=== PATIENT | female | born 1975 | race Caucasian/White ===

== ENCOUNTER 2016-07-04 15:51 | Emergency (ER) | payer MEDICAID ==
[~2016-07-04] VITALS: Ht 134.6 cm; Wt 64.0 kg
[~2016-07-04 15:51] MED LIST: IOHEXOL-300 100 ML BOTTLE ONE; SODIUM CHLORIDE 0.9% 10ML VIAL ONE
[2016-07-04] MEDS ORDERED: ONDANSETRON 4MG ODT PO STA (17:21)
[2016-07-04] MEDS ORDERED: MAGNESIUM/ALUMINUM HYDROXIDE/SIMETHICONE 30ML UDC PO STA (17:21)
[2016-07-04] MEDS ORDERED: FAMOTIDINE 20MG TABLET PO ONE (17:30)
[2016-07-04 17:40] LABS: BASOPHILS % 0.5 % (0.0-2.0); EOSINOPHILS % 3.8 % (0.0-5.0); HEMATOCRIT. 32.3 % (36.0-48.0); HEMOGLOBIN. 10.8 g/dL (12.0-16.0); LYMPHOCYTES % 36.9 % (20.0-50.0); MEAN CORPUSCULAR HEMOGLOBIN 27.4 pg (28.0-32.0); MEAN CORPUSCULAR HGB CONC 33.4 g/dL (31.0-37.0); MEAN CORPUSCULAR VOLUME 81.9 fL (81.0-99.0); MEAN PLATELET VOLUME 8.9 fl (7.4-10.4); MONOCYTES % 6.4 % (2.0-8.0); NEUTROPHILS % 52.4 % (40.0-76.0); PLATELET 253 x1000/uL (130-400); RED BLOOD CELL COUNT 3.95 mill/uL (4.2-5.4); RED CELL DISTRIBUTION WIDTH 14.9 % (11.6-14.6); WHITE BLOOD COUNT 7.1 x1000/uL (4.5-11.0)
[2016-07-04 17:41] LABS: CLARITY URINE CLEAR (CLEAR); COLOR URINE YELLOW (YELLOW); GLUCOSE URINE NEGATIVE (NEGATIVE); KETONES URINE TRACE (NEGATIVE); LEUKOCYTE ESTERASE URINE NEGATIVE (NEGATIVE); NITRITE URINE NEGATIVE (NEGATIVE); OCCULT BLOOD URINE NEGATIVE (NEGATIVE); PROTEIN URINE NEGATIVE (NEGATIVE); SPECIFIC GRAVITY URINE 1.029 (1.005-1.030)
[2016-07-04 17:48] LABS: PARTIAL THROMBOPLASTIN TIME 25.6 sec (24.0-34.0); PROTHROMBIN TIME 10.7 sec
[2016-07-04 17:54] LABS: ALANINE AMINOTRANSFERASE 27 IU/L (13-61); ALBUMIN 3.3 g/dL (3.4-5.0); ANION GAP 12; CALCIUM 8.2 mg/dL (8.5-10.1); CARBON DIOXIDE 26 mEq/L (21-32); CHLORIDE 109 mEq/L (98-107); ETHANOL BLOOD < 10 mg/dL; INDEX HEMOLYSI 1 (1-3); INDEX ICTERIC 1 (1-4); INDEX LIPEMIC 1 (1-3); LIPASE 219 IU/L (73-393); UREA NITROGEN BLOOD 17 mg/dL (7-21); eGFR > 60 mL/min (>60)
[2016-07-04 17:55] LABS: HCG SCREEN NEGATIVE
[2016-07-04 17:58] LABS: *AMPHETAMINES SCREEN URINE NEGATIVE (NEGATIVE); *BARBITURATES SCREEN URINE NEGATIVE (NEGATIVE); *BENZODIAZEPINES SCREEN URINE NEGATIVE (NEGATIVE); *COCAINE SCREEN URINE NEGATIVE (NEGATIVE); CANNABINOID URINE SCREEN NEGATIVE (NEGATIVE); ECSTASY MDMA SCREEN URINE NEGATIVE (NEGATIVE); METHADONE URINE SCREEN NEGATIVE (NEGATIVE); OPIATES URINE SCREEN NEGATIVE (NEGATIVE); PHENCYCLIDINE URINE SCREEN NEGATIVE (NEGATIVE)
[2016-07-04 20:41] VITALS: BP 112/62
== END 2016-07-04 20:44 | disposition home or self-care (01) ==
LOC: ER 15:51
DX: K29.70 Gastritis, unspecified, without bleeding (principal); K80.20 Calculus of gallbladder without cholecystitis without obstruction; D18.03 Hemangioma of intra-abdominal structures; K27.9 Peptic ulcer, site unspecified, unspecified as acute or chronic, without hemorrhage or perforation; Z98.890 Other specified postprocedural states
CPT/HCPCS: 36415; 74177; 76705; 80053; 80305; 81003; 83690; 84703; 85025; 85610; 85730; 93005; 99285; A4216; G0482; Q0162; Q9967; Z7610

== ENCOUNTER 2019-10-19 00:24 | Emergency (ER) | payer BC, MEDICAID, OTHER ==
[~2019-10-19] VITALS: Ht 134.6 cm; Wt 63.0 kg
[2019-10-19 03:04] VITALS: BP 142/82
== END 2019-10-19 03:07 | disposition home or self-care (01) ==
LOC: ER 01:16
DX: H11.31 Conjunctival hemorrhage, right eye (principal); H92.01 Otalgia, right ear; Z86.19 Personal history of other infectious and parasitic diseases; Z98.890 Other specified postprocedural states
CPT/HCPCS: 99282

== ENCOUNTER 2019-11-05 18:09 | Emergency (ER) | payer BC ==
[~2019-11-05] VITALS: Ht 134.6 cm; Wt 63.0 kg
[2019-11-05 21:37] LABS: BASOPHILS % 0.4 % (0.0-2.0); EOSINOPHILS % 2.7 % (0.0-5.0); HEMATOCRIT. 42.2 % (36.0-48.0); HEMOGLOBIN. 14.7 g/dL (12.0-16.0); LYMPHOCYTES % 31.2 % (20.0-50.0); MEAN CORPUSCULAR HEMOGLOBIN 31.7 pg (28.0-32.0); MEAN CORPUSCULAR VOLUME 91.1 fL (81.0-99.0); MONOCYTES % 5.7 % (2.0-8.0); PLATELET 291 x1000/uL (130-400); RED BLOOD CELL COUNT 4.63 mill/uL (4.2-5.4); RED CELL DISTRIBUTION WIDTH 13.3 % (11.6-14.6)
[2019-11-05 21:41] LABS: CHLORIDE 106 mEq/L (98-107)
[2019-11-05] MEDS ORDERED: SODIUM CHLORIDE 0.9% 500 ML IV ONE (22:00)
[2019-11-05] MEDS ORDERED: MECLIZINE 25MG TABLET PO ONE (22:15)
[2019-11-05] MEDS ORDERED: METOCLOPRAMIDE HCL 10MG/2ML VIAL IV ONE (22:15)
[2019-11-05] MEDS ORDERED: DIPHENHYDRAMINE 50MG/ML VIAL IV ONE (22:15)
[2019-11-05 22:18] LABS: CLARITY URINE CLOUDY (CLEAR); COLOR URINE YELLOW (YELLOW); KETONES URINE NEGATIVE (NEGATIVE); LEUKOCYTE ESTERASE URINE TRACE (NEGATIVE); NITRITE URINE NEGATIVE (NEGATIVE); OCCULT BLOOD URINE NEGATIVE (NEGATIVE); PH URINE 7.5 (4.5-8.0); PROTEIN URINE NEGATIVE (NEGATIVE); UROBILINOGEN URINE 0.2 E.U./dL (0.2-1.0)
[2019-11-05 22:32] LABS: HCG SCREEN NEGATIVE
[2019-11-06 00:25] VITALS: BP 113/61
== END 2019-11-06 00:31 | disposition home or self-care (01) ==
LOC: ER 18:09
DX: R51 Headache (principal); R42 Dizziness and giddiness; Z98.890 Other specified postprocedural states
CPT/HCPCS: 36415; 70450; 71045; 80053; 81003; 82962; 84484; 84703; 85025; 93005; 96361; 96374; 96375; 99285; J1200; J2765; J7040; J8597

== ENCOUNTER 2020-02-07 19:48 | Emergency (ER) | payer BC, MEDICAID ==
[~2020-02-07] VITALS: Ht 134.6 cm; Wt 66.0 kg
[2020-02-07] MEDS ORDERED: ACETAMINOPHEN 500MG TABLET PO ONE (20:45)
[2020-02-07 22:52] LABS: CLARITY URINE CLEAR (CLEAR); COLOR URINE YELLOW (YELLOW); KETONES URINE NEGATIVE (NEGATIVE); LEUKOCYTE ESTERASE URINE NEGATIVE (NEGATIVE); NITRITE URINE NEGATIVE (NEGATIVE); OCCULT BLOOD URINE NEGATIVE (NEGATIVE); PROTEIN URINE NEGATIVE (NEGATIVE); SPECIFIC GRAVITY URINE 1.019 (1.005-1.030); UROBILINOGEN URINE 0.2 E.U./dL (0.2-1.0)
[2020-02-07 23:26] VITALS: BP 151/91
== END 2020-02-07 23:27 | disposition home or self-care (01) ==
LOC: ER 19:48
DX: M54.5 Low back pain (principal); Z98.890 Other specified postprocedural states
CPT/HCPCS: 81003; 99283

== ENCOUNTER → 2020-02-08 | Outpatient (CLI) | payer BC, MEDICAID | END | disposition home or self-care (01) | LOC: LAB 08:25 | PROVIDERS: ATTEND Nurse Practitioner Acute Care | DX: Z01.812 Encounter for preprocedural laboratory examination (principal); Z20.828 Contact with and (suspected) exposure to other viral communicable diseases; R10.9 Unspecified abdominal pain | CPT/HCPCS: C9803; U0003 ==

== ENCOUNTER → 2020-02-10 | Outpatient (CLI) | payer BC | END | disposition home or self-care (01) | LOC: US 08:25 | PROVIDERS: ATTEND Internal Medicine | DX: K76.0 Fatty (change of) liver, not elsewhere classified (principal); K76.89 Other specified diseases of liver | CPT/HCPCS: 76700 ==

== ENCOUNTER → 2020-02-19 | Outpatient (CLI) | payer BC ==
[2020-02-19 09:19] LABS: BASOPHILS % 0.5 % (0.0-2.0); EOSINOPHILS % 4.2 % (0.0-5.0); HEMATOCRIT. 40.7 % (36.0-48.0); HEMOGLOBIN. 14.4 g/dL (12.0-16.0); LYMPHOCYTES % 25.9 % (20.0-50.0); MEAN CORPUSCULAR HEMOGLOBIN 31.8 pg (28.0-32.0); MEAN CORPUSCULAR VOLUME 89.6 fL (81.0-99.0); MEAN PLATELET VOLUME 8.8 fl (7.4-10.4); MONOCYTES % 5.3 % (2.0-8.0); NEUTROPHILS % 64.1 % (40.0-76.0); PLATELET 263 x1000/uL (130-400); RED BLOOD CELL COUNT 4.55 mill/uL (4.2-5.4); RED CELL DISTRIBUTION WIDTH 12.4 % (11.6-14.6)
[2020-02-19 10:12] LABS: CHLORIDE 108 mEq/L (98-107)
[2020-02-19 10:23] LABS: LDL CHOLESTEROL 125 mg/dL (5-100)
[2020-02-19 10:25] LABS: HDL CHOLESTEROL 76 mg/dL (40-59)
[2020-02-19 13:24] LABS: HEPATITIS B SURFACE ANTIGEN NEGATIVE
[2020-02-19 13:54] LABS: HEPATITIS A AB IGM NEGATIVE (NEGATIVE)
== END | disposition home or self-care (01) ==
LOC: LAB 08:26
PROVIDERS: ATTEND Internal Medicine
DX: Z00.00 Encounter for general adult medical examination without abnormal findings (principal); I10 Essential (primary) hypertension; K76.0 Fatty (change of) liver, not elsewhere classified; Z13.0 Encounter for screening for diseases of the blood and blood-forming organs and certain disorders involving the immune mechanism; Z13.1 Encounter for screening for diabetes mellitus; Z13.220 Encounter for screening for lipoid disorders
CPT/HCPCS: 36415; 80053; 80061; 80076; 83036; 84439; 84443; 85025; 86705; 86709; 86803; 87340

== ENCOUNTER → 2020-02-24 | Outpatient (CLI) | payer BC | END | disposition home or self-care (01) | LOC: LAB 10:26 | PROVIDERS: ATTEND Internal Medicine | DX: Z20.828 Contact with and (suspected) exposure to other viral communicable diseases (principal); Z86.19 Personal history of other infectious and parasitic diseases | CPT/HCPCS: C9803; U0003 ==

== ENCOUNTER → 2020-02-26 | Outpatient (CLI) | payer BC | END | disposition home or self-care (01) | LOC: US 10:45 | PROVIDERS: ATTEND Internal Medicine | DX: D25.1 Intramural leiomyoma of uterus (principal); N88.8 Other specified noninflammatory disorders of cervix uteri | CPT/HCPCS: 76830; 76856 ==

== ENCOUNTER → 2020-07-22 | Outpatient (CLI) | payer BC ==
[2020-07-22 10:35] LABS: CLARITY URINE CLEAR (CLEAR); COLOR URINE YELLOW (YELLOW); KETONES URINE NEGATIVE (NEGATIVE); LEUKOCYTE ESTERASE URINE NEGATIVE (NEGATIVE); NITRITE URINE NEGATIVE (NEGATIVE); OCCULT BLOOD URINE NEGATIVE (NEGATIVE); PROTEIN URINE NEGATIVE (NEGATIVE); UROBILINOGEN URINE 0.2 E.U./dL (0.2-1.0)
[2020-07-22 10:38] LABS: BASOPHILS % 0.4 % (0.0-2.0); EOSINOPHILS % 3.9 % (0.0-5.0); HEMATOCRIT. 40.6 % (36.0-48.0); HEMOGLOBIN. 13.8 g/dL (12.0-16.0); LYMPHOCYTES % 33.5 % (20.0-50.0); MEAN CORPUSCULAR HEMOGLOBIN 29.8 pg (28.0-32.0); MEAN CORPUSCULAR VOLUME 87.7 fL (81.0-99.0); MEAN PLATELET VOLUME 8.7 fl (7.4-10.4); MONOCYTES % 5.4 % (2.0-8.0); NEUTROPHILS % 56.8 % (40.0-76.0); PLATELET 316 x1000/uL (130-400); RED BLOOD CELL COUNT 4.62 mill/uL (4.2-5.4); RED CELL DISTRIBUTION WIDTH 13.1 % (11.6-14.6)
[2020-07-22 10:46] LABS: CHLORIDE 109 mEq/L (98-107)
[2020-07-22 10:53] LABS: LDL CHOLESTEROL 100 mg/dL (5-100)
[2020-07-22 10:54] LABS: HDL CHOLESTEROL 69 mg/dL (40-59)
== END | disposition home or self-care (01) ==
LOC: LAB 09:42
PROVIDERS: ATTEND Obstetrics & Gynecology Obstetrics
DX: Z13.220 Encounter for screening for lipoid disorders (principal); Z13.0 Encounter for screening for diseases of the blood and blood-forming organs and certain disorders involving the immune mechanism; Z13.1 Encounter for screening for diabetes mellitus
CPT/HCPCS: 36415; 80053; 80061; 81003; 82951; 83036; 84443; 85025

== ENCOUNTER 2020-08-21 23:29 | Emergency (ER) | payer BC ==
[~2020-08-21] VITALS: Ht 134.6 cm; Wt 64.0 kg
[2020-08-22 00:57] VITALS: BP 145/75
[2020-08-22] MEDS ORDERED: ACETAMINOPHEN 325MG TABLET PO ONE (02:00)
[2020-08-22] MEDS ORDERED: IBUPROFEN 400MG TABLET PO ONE (02:00)
[2020-08-23] MEDS ORDERED: AMLO10TA80 PO
== END 2020-08-22 04:20 | disposition home or self-care (01) ==
LOC: ER 23:29
DX: M79.672 Pain in left foot (principal); M79.671 Pain in right foot; I10 Essential (primary) hypertension; Z90.710 Acquired absence of both cervix and uterus
CPT/HCPCS: 82962; 99283

== ENCOUNTER 2020-08-22 12:50 | Inpatient (IN) | payer BC ==
[~2020-08-22] VITALS: Ht 134.6 cm; Wt 48.6 kg
[2020-08-22] MEDS ORDERED: METOCLOPRAMIDE HCL 10MG/2ML VIAL IV STA ×2 (15:47→22:25)
[2020-08-22 16:52] LABS: BASOPHILS % 0.2 % (0.0-2.0); EOSINOPHILS % 2.1 % (0.0-5.0); HEMATOCRIT. 41.2 % (36.0-48.0); HEMOGLOBIN. 14.4 g/dL (12.0-16.0); LYMPHOCYTES % 24.5 % (20.0-50.0); MEAN CORPUSCULAR HEMOGLOBIN 30.9 pg (28.0-32.0); MEAN CORPUSCULAR VOLUME 88.1 fL (81.0-99.0); MEAN PLATELET VOLUME 9.1 fl (7.4-10.4); MONOCYTES % 4.3 % (2.0-8.0); NEUTROPHILS % 68.9 % (40.0-76.0); PLATELET 306 x1000/uL (130-400); RED BLOOD CELL COUNT 4.67 mill/uL (4.2-5.4); RED CELL DISTRIBUTION WIDTH 13.3 % (11.6-14.6)
[2020-08-22 16:59] LABS: CHLORIDE 112 mEq/L (98-107)
[2020-08-22 17:01] LABS: PROTHROMBIN TIME 10.5 sec (9.6-11.0)
[2020-08-22] MEDS ORDERED: ASPIRIN 325MG EC TABLET PO ONE ×2 (18:15→22:30)
[2020-08-22 18:19] LABS: HCG SCREEN NEGATIVE
[2020-08-22 18:30] LABS: CLARITY URINE CLEAR (CLEAR); COLOR URINE YELLOW (YELLOW); KETONES URINE TRACE (NEGATIVE); LEUKOCYTE ESTERASE URINE NEGATIVE (NEGATIVE); NITRITE URINE NEGATIVE (NEGATIVE); OCCULT BLOOD URINE NEGATIVE (NEGATIVE); PH URINE 5.5 (4.5-8.0); PROTEIN URINE NEGATIVE (NEGATIVE); SPECIFIC GRAVITY URINE 1.022 (1.005-1.030); UROBILINOGEN URINE 0.2 E.U./dL (0.2-1.0)
[2020-08-22 18:37] LABS: *AMPHETAMINES SCREEN URINE NEGATIVE (NEGATIVE)
[2020-08-22 18:38] LABS: *BARBITURATES SCREEN URINE NEGATIVE (NEGATIVE); *BENZODIAZEPINES SCREEN URINE NEGATIVE (NEGATIVE); *COCAINE SCREEN URINE NEGATIVE (NEGATIVE); METHADONE URINE SCREEN NEGATIVE (NEGATIVE); PHENCYCLIDINE URINE SCREEN NEGATIVE (NEGATIVE)
[2020-08-22 18:39] LABS: CANNABINOID URINE SCREEN NEGATIVE (NEGATIVE)
[2020-08-22 18:45] LABS: OPIATES URINE SCREEN PRESUMTIVE POSITIVE (NEGATIVE)
[2020-08-23] MEDS ORDERED: AMLO10TA80 PO
[2020-08-23 00:40] VITALS: BP 109/62
[2020-08-23 04:00] VITALS: BP 110/70
[2020-08-23 07:27] LABS: BASOPHILS % 0.2 % (0.0-2.0); EOSINOPHILS % 2.4 % (0.0-5.0); HEMOGLOBIN. 13.4 g/dL (12.0-16.0); LYMPHOCYTES % 29.8 % (20.0-50.0); MEAN CORPUSCULAR HEMOGLOBIN 30.3 pg (28.0-32.0); MEAN CORPUSCULAR VOLUME 88.2 fL (81.0-99.0); MONOCYTES % 7.1 % (2.0-8.0); NEUTROPHILS % 60.5 % (40.0-76.0); PLATELET 273 x1000/uL (130-400); RED BLOOD CELL COUNT 4.42 mill/uL (4.2-5.4); RED CELL DISTRIBUTION WIDTH 13.2 % (11.6-14.6)
[2020-08-23 07:50] LABS: CHLORIDE 112 mEq/L (98-107)
[2020-08-23 08:00] VITALS: BP 94/43
[2020-08-23 08:02] LABS: LDL CHOLESTEROL 97 mg/dL (5-100)
[2020-08-23 08:03] LABS: HDL CHOLESTEROL 68 mg/dL (40-59)
[2020-08-23] MEDS: AMLODIPINE 10MG TABLET PO SCH (09:00)
[2020-08-23] MEDS: ASPIRIN 81MG TABLET PO SCH (09:18)
[2020-08-23] MEDS: ENOXAPARIN 30MG/0.3ML SYR SUBCUT SCH (09:19)
[2020-08-23 12:00] VITALS: BP 102/56
[2020-08-23 16:00] VITALS: BP 105/62
[2020-08-23 20:00] VITALS: BP 91/51
[2020-08-23] MEDS ORDERED: ATORVASTATIN CALCIUM 40MG TABLET PO SCH (21:00)
[2020-08-24] VITALS: BP 103/55
[2020-08-24 04:00] VITALS: BP 98/50
[2020-08-24 08:00] VITALS: BP 94/50
[2020-08-24] MEDS: AMLODIPINE 10MG TABLET PO SCH (09:00)
[2020-08-24] MEDS: ASPIRIN 81MG TABLET PO SCH (09:16)
[2020-08-24] MEDS: ENOXAPARIN 30MG/0.3ML SYR SUBCUT SCH (09:17)
[2020-08-24 12:00] VITALS: BP 115/69
[2020-08-24 13:50] VITALS: BP 115/69
== END 2020-08-24 14:52 | disposition home or self-care (01) | DRG 103 ==
LOC: ER 12:50 → 6WST 20:07 → EDBEDREQTM 20:16 → EDBEDREQ 20:16 → ENRESERV 21:50
PROVIDERS: ADMIT Internal Medicine; ATTEND Internal Medicine
DX: R51.9 Headache, unspecified (principal); E87.8 Other disorders of electrolyte and fluid balance, not elsewhere classified; I10 Essential (primary) hypertension; Z98.891 History of uterine scar from previous surgery; Z90.710 Acquired absence of both cervix and uterus
CPT/HCPCS: 36415; 71045; 72141; 72146; 72148; 80053; 80061; 80305; 81003; 84484; 84703; 85025; 93005; 97162; 99285; J1650; J2765

== ENCOUNTER → 2020-08-30 | Outpatient (CLI) | payer BC, MEDICAID ==
[~2020-08-30] MED LIST changes: +AMLO10TA80 PO; -IOHEXOL-300 100 ML BOTTLE ONE; -SODIUM CHLORIDE 0.9% 10ML VIAL ONE
[2020-08-30 08:06] LABS: CHLORIDE 109 mEq/L (98-107)
[2020-08-30 08:07] LABS: BASOPHILS % 0.5 % (0.0-2.0); EOSINOPHILS % 3.1 % (0.0-5.0); HEMATOCRIT. 39.4 % (36.0-48.0); HEMOGLOBIN. 13.4 g/dL (12.0-16.0); LYMPHOCYTES % 31.4 % (20.0-50.0); MEAN CORPUSCULAR HEMOGLOBIN 30.6 pg (28.0-32.0); MEAN CORPUSCULAR VOLUME 89.8 fL (81.0-99.0); MEAN PLATELET VOLUME 9.5 fl (7.4-10.4); MONOCYTES % 5.9 % (2.0-8.0); NEUTROPHILS % 59.1 % (40.0-76.0); PLATELET 266 x1000/uL (130-400); RED BLOOD CELL COUNT 4.39 mill/uL (4.2-5.4); RED CELL DISTRIBUTION WIDTH 13.3 % (11.6-14.6)
[2020-08-30 08:09] LABS: AMYLASE 67 IU/L (25-115)
[2020-08-30 08:15] LABS: T4 FREE 1.04 ng/dL (0.76-1.46)
== END | disposition home or self-care (01) ==
LOC: LAB 07:20
PROVIDERS: ATTEND Pathology Anatomic Pathology & Clinical Pathology
DX: Z00.00 Encounter for general adult medical examination without abnormal findings (principal); I10 Essential (primary) hypertension; Z12.0 Encounter for screening for malignant neoplasm of stomach; Z13.1 Encounter for screening for diabetes mellitus
CPT/HCPCS: 36415; 80053; 82150; 83036; 84439; 84443; 85025

== ENCOUNTER → 2020-09-01 | Outpatient (CLI) | payer BC, MEDICAID | END | disposition home or self-care (01) | LOC: US 07:40 | PROVIDERS: ATTEND Internal Medicine | DX: K76.0 Fatty (change of) liver, not elsewhere classified (principal); Z90.49 Acquired absence of other specified parts of digestive tract | CPT/HCPCS: 76700 ==

== ENCOUNTER → 2020-09-16 | Outpatient (CLI) | payer BC ==
[2020-09-16 14:33] LABS: HEPATITIS B SURFACE ANTIGEN NEGATIVE
[2020-09-16 14:38] LABS: VITAMIN B12 SERUM 1107 pg/mL (211-911)
[2020-09-16 14:38] LABS: CLARITY URINE CLEAR (CLEAR); COLOR URINE YELLOW (YELLOW); KETONES URINE NEGATIVE (NEGATIVE); LEUKOCYTE ESTERASE URINE NEGATIVE (NEGATIVE); NITRITE URINE NEGATIVE (NEGATIVE); OCCULT BLOOD URINE NEGATIVE (NEGATIVE); PH URINE 7.5 (4.5-8.0); PROTEIN URINE NEGATIVE (NEGATIVE)
[2020-09-16 15:03] LABS: HEPATITIS A AB IGM NEGATIVE (NEGATIVE)
[2020-09-22 04:08] LABS: OVA & PARASITE EXAM Final report (.)
== END | disposition home or self-care (01) ==
LOC: LAB 09:56
PROVIDERS: ATTEND Internal Medicine Geriatric Medicine
DX: Z00.01 Encounter for general adult medical examination with abnormal findings (principal); I10 Essential (primary) hypertension; R10.9 Unspecified abdominal pain; N39.0 Urinary tract infection, site not specified
CPT/HCPCS: 36415; 81003; 82306; 82607; 86705; 86709; 86803; 87177; 87209; 87340

== ENCOUNTER → 2020-10-04 | Outpatient (CLI) | payer BC ==
[2020-10-04 10:50] LABS: CHLORIDE 108 mEq/L (98-107)
== END | disposition home or self-care (01) ==
LOC: LAB 10:00
PROVIDERS: ATTEND Internal Medicine Gastroenterology
DX: R10.13 Epigastric pain (principal)
CPT/HCPCS: 36415; 80053

== ENCOUNTER → 2020-10-06 | Outpatient (CLI) | payer BC ==
[~2020-10-06] MED LIST changes: +IOHEXOL-350 100 ML BOTTLE ONE
== END | disposition home or self-care (01) ==
LOC: MAMMO 08:55
PROVIDERS: ATTEND Obstetrics & Gynecology Obstetrics
DX: N60.01 Solitary cyst of right breast (principal); N60.02 Solitary cyst of left breast; N63.20 Unspecified lump in the left breast, unspecified quadrant; N64.4 Mastodynia
CPT/HCPCS: 76642; 77066; Q9967

== ENCOUNTER → 2020-11-24 | Outpatient (CLI) | payer BC ==
[~2020-11-24] MED LIST changes: -IOHEXOL-350 100 ML BOTTLE ONE
== END | disposition home or self-care (01) ==
LOC: US 07:43
PROVIDERS: ATTEND Internal Medicine Geriatric Medicine
DX: N83.201 Unspecified ovarian cyst, right side (principal); Z90.5 Acquired absence of kidney; Z98.890 Other specified postprocedural states
CPT/HCPCS: 76830; 76856

== ENCOUNTER → 2021-02-06 | Outpatient (CLI) | payer BC ==
[2021-02-06 12:48] LABS: BASOPHILS % 0.3 % (0.0-2.0); EOSINOPHILS % 3.7 % (0.0-5.0); HEMATOCRIT. 39.5 % (36.0-48.0); HEMOGLOBIN. 13.7 g/dL (12.0-16.0); LYMPHOCYTES % 33.9 % (20.0-50.0); MEAN CORPUSCULAR HEMOGLOBIN 30.4 pg (28.0-32.0); MEAN CORPUSCULAR VOLUME 88.1 fL (81.0-99.0); MEAN PLATELET VOLUME 8.7 fl (7.4-10.4); MONOCYTES % 4.9 % (2.0-8.0); NEUTROPHILS % 57.2 % (40.0-76.0); PLATELET 317 x1000/uL (130-400); RED BLOOD CELL COUNT 4.49 mill/uL (4.2-5.4); RED CELL DISTRIBUTION WIDTH 13.3 % (11.6-14.6)
[2021-02-06 13:43] LABS: CHLORIDE 109 mEq/L (98-107)
[2021-02-06 13:50] LABS: LDL CHOLESTEROL 112 mg/dL (5-100)
[2021-02-06 13:51] LABS: HDL CHOLESTEROL 64 mg/dL (40-59)
== END | disposition home or self-care (01) ==
LOC: LAB 12:18
PROVIDERS: ATTEND Internal Medicine Geriatric Medicine
DX: I10 Essential (primary) hypertension (principal); K76.0 Fatty (change of) liver, not elsewhere classified
CPT/HCPCS: 36415; 80053; 80061; 82306; 83036; 85025

== ENCOUNTER → 2021-04-20 | Outpatient (CLI) | payer BC | END | disposition home or self-care (01) | LOC: MAMMO 08:44 | PROVIDERS: ATTEND Obstetrics & Gynecology Obstetrics | DX: N60.01 Solitary cyst of right breast (principal); N60.02 Solitary cyst of left breast; N63.23 Unspecified lump in the left breast, lower outer quadrant; N64.4 Mastodynia; R92.2 Inconclusive mammogram | CPT/HCPCS: 76642; 77066 ==

== ENCOUNTER → 2021-05-17 | Outpatient (CLI) | payer BC ==
[2021-05-19 09:10] LABS: CANCER ANTIGEN 125 5.7 U/mL (0.0-38.1)
== END | disposition home or self-care (01) ==
LOC: LAB 13:53
PROVIDERS: ATTEND Obstetrics & Gynecology Obstetrics
DX: Z12.73 Encounter for screening for malignant neoplasm of ovary (principal)
CPT/HCPCS: 36415; 82378; 86301; 86304; 86305

== ENCOUNTER 2021-07-26 00:13 | Emergency (ER) | payer BC, MEDICAID ==
[~2021-07-26] VITALS: Ht 134.6 cm; Wt 65.1 kg
[2021-07-26 00:19] VITALS: BP 184/93
[2021-07-26] MEDS ORDERED: ACETAMINOPHEN 325MG TABLET PO STA (00:43)
[2021-07-26 01:16] LABS: BASOPHILS % 0.4 % (0.0-2.0); HEMATOCRIT. 38.9 % (36.0-48.0); HEMOGLOBIN. 13.4 g/dL (12.0-16.0); LYMPHOCYTES % 34.6 % (20.0-50.0); MEAN CORPUSCULAR HEMOGLOBIN 30.4 pg (28.0-32.0); MEAN CORPUSCULAR VOLUME 87.8 fL (81.0-99.0); MEAN PLATELET VOLUME 8.4 fl (7.4-10.4); MONOCYTES % 7.6 % (2.0-8.0); NEUTROPHILS % 53.4 % (40.0-76.0); PLATELET 292 x1000/uL (130-400); RED BLOOD CELL COUNT 4.43 mill/uL (4.2-5.4); RED CELL DISTRIBUTION WIDTH 13.1 % (11.6-14.6)
[2021-07-26 01:23] LABS: CHLORIDE 109 mEq/L (98-107)
[2021-07-26] MEDS ORDERED: ACETAMINOPHEN 325MG TABLET PO NR (03:00)
[2021-07-26 03:25] LABS: CLARITY URINE CLEAR (CLEAR); COLOR URINE YELLOW (YELLOW); KETONES URINE NEGATIVE (NEGATIVE); LEUKOCYTE ESTERASE URINE NEGATIVE (NEGATIVE); NITRITE URINE NEGATIVE (NEGATIVE); OCCULT BLOOD URINE NEGATIVE (NEGATIVE); PROTEIN URINE NEGATIVE (NEGATIVE); SPECIFIC GRAVITY URINE 1.016 (1.005-1.030)
[2021-07-26] MEDS ORDERED: ACET-2708 PO (04:36)
[2021-07-29] MEDS ORDERED: LEVO50TA8 MT (12:48)
== END 2021-07-26 04:56 | disposition home or self-care (01) ==
LOC: ER 00:29
DX: H05.229 Edema of unspecified orbit (principal); M25.562 Pain in left knee; M25.561 Pain in right knee
CPT/HCPCS: 36415; 80053; 81003; 84443; 85025; 99283

== ENCOUNTER → 2021-07-28 | Outpatient (CLI) | payer BC, MEDICAID ==
[~2021-07-28] MED LIST changes: +ACET-2708 PO; +LEVO50TA8 MT
[2021-07-28 11:15] LABS: T4 FREE 0.92 ng/dL (0.76-1.46)
== END | disposition home or self-care (01) ==
LOC: LAB 10:27
PROVIDERS: ATTEND Internal Medicine Geriatric Medicine
DX: R94.6 Abnormal results of thyroid function studies (principal); R73.09 Other abnormal glucose
CPT/HCPCS: 36415; 83036; 84436; 84439; 84443; 84481

== ENCOUNTER → 2021-08-22 | Outpatient (CLI) | payer BC ==
[2021-08-22 10:38] LABS: CHLORIDE 109 mEq/L (98-107)
[2021-08-24 08:11] LABS: ANTI-NUCLEAR ANTIBODIES DIRECT Negative (Negative)
== END | disposition home or self-care (01) ==
LOC: LAB 09:57
PROVIDERS: ATTEND Internal Medicine Geriatric Medicine
DX: I10 Essential (primary) hypertension (principal); M79.18 Myalgia, other site; K75.81 Nonalcoholic steatohepatitis (NASH); M48.061 Spinal stenosis, lumbar region without neurogenic claudication
CPT/HCPCS: 36415; 80053; 84436; 84439; 84443; 84479; 85651; 86038

== ENCOUNTER → 2021-09-01 | Outpatient (CLI) | payer BC, MEDICAID | END | disposition home or self-care (01) | LOC: RAD 14:50 | PROVIDERS: ATTEND Internal Medicine Geriatric Medicine | DX: M79.671 Pain in right foot (principal); M79.672 Pain in left foot | CPT/HCPCS: 73630 ==

== ENCOUNTER → 2021-12-19 | Outpatient (CLI) | payer BC, MEDICAID ==
[2021-12-19 11:39] LABS: CHLORIDE 109 mEq/L (98-107)
[2021-12-19 11:53] LABS: HDL CHOLESTEROL 68 mg/dL (40-59); LDL CHOLESTEROL 120 mg/dL (5-100); T4 FREE 0.97 ng/dL (0.76-1.46)
== END | disposition home or self-care (01) ==
LOC: LAB 10:46
PROVIDERS: ATTEND Internal Medicine Geriatric Medicine
DX: I10 Essential (primary) hypertension (principal); K75.81 Nonalcoholic steatohepatitis (NASH)
CPT/HCPCS: 36415; 80053; 80061; 83036; 84439; 84443

== ENCOUNTER → 2022-02-19 | Outpatient (CLI) | payer BC, MEDICAID | END | disposition home or self-care (01) | LOC: LAB 16:34 | PROVIDERS: ATTEND Internal Medicine Geriatric Medicine | DX: Z20.822 Contact with and (suspected) exposure to COVID-19 (principal) | CPT/HCPCS: C9803; U0003; U0005 ==

== ENCOUNTER → 2022-05-07 | Outpatient (CLI) | payer BC, MEDICAID ==
[2022-05-07 12:29] LABS: BASOPHILS % 0.4 % (0.0-2.0); EOSINOPHILS % 4.4 % (0.0-5.0); HEMATOCRIT. 40.8 % (36.0-48.0); HEMOGLOBIN. 14.2 g/dL (12.0-16.0); LYMPHOCYTES % 39.3 % (20.0-50.0); MEAN CORPUSCULAR HEMOGLOBIN 30.5 pg (28.0-32.0); MEAN CORPUSCULAR VOLUME 87.6 fL (81.0-99.0); MEAN PLATELET VOLUME 9.1 fl (7.4-10.4); MONOCYTES % 5.6 % (2.0-8.0); NEUTROPHILS % 50.3 % (40.0-76.0); PLATELET 281 x1000/uL (130-400); RED BLOOD CELL COUNT 4.66 mill/uL (4.2-5.4); RED CELL DISTRIBUTION WIDTH 13.3 % (11.6-14.6)
[2022-05-07 12:30] LABS: CHLORIDE 108 mEq/L (98-107)
[2022-05-07 12:44] LABS: HDL CHOLESTEROL 70 mg/dL (40-59); LDL CHOLESTEROL 97 mg/dL (5-100); T4 FREE 1.02 ng/dL (0.76-1.46)
== END | disposition home or self-care (01) ==
LOC: LAB 11:22
PROVIDERS: ATTEND Specialist
DX: E11.9 Type 2 diabetes mellitus without complications (principal); E78.2 Mixed hyperlipidemia; E55.9 Vitamin D deficiency, unspecified; D64.9 Anemia, unspecified
CPT/HCPCS: 36415; 80053; 80061; 82306; 83036; 84439; 84443; 85025

== ENCOUNTER → 2022-05-17 | Outpatient (CLI) | payer BC, MEDICAID ==
[2022-05-17 13:07] LABS: CLARITY URINE CLEAR (CLEAR); COLOR URINE YELLOW (YELLOW); KETONES URINE NEGATIVE (NEGATIVE); LEUKOCYTE ESTERASE URINE NEGATIVE (NEGATIVE); NITRITE URINE NEGATIVE (NEGATIVE); OCCULT BLOOD URINE NEGATIVE (NEGATIVE); PROTEIN URINE NEGATIVE (NEGATIVE); SPECIFIC GRAVITY URINE 1.011 (1.005-1.030); UROBILINOGEN URINE 0.2 E.U./dL (0.2-1.0)
== END | disposition home or self-care (01) ==
LOC: LAB 12:33
PROVIDERS: ATTEND Internal Medicine Geriatric Medicine
DX: N39.0 Urinary tract infection, site not specified (principal)
CPT/HCPCS: 81003

== ENCOUNTER → 2022-05-30 | Outpatient (CLI) | payer BC, MEDICAID ==
[2022-05-30 11:16] LABS: BASOPHILS % 0.4 % (0.0-2.0); EOSINOPHILS % 5.3 % (0.0-5.0); HEMOGLOBIN. 14.3 g/dL (12.0-16.0); LYMPHOCYTES % 37.7 % (20.0-50.0); MEAN CORPUSCULAR VOLUME 87.9 fL (81.0-99.0); MEAN PLATELET VOLUME 8.8 fl (7.4-10.4); MONOCYTES % 5.1 % (2.0-8.0); NEUTROPHILS % 51.5 % (40.0-76.0); PLATELET 280 x1000/uL (130-400); RED BLOOD CELL COUNT 4.78 mill/uL (4.2-5.4); RED CELL DISTRIBUTION WIDTH 13.2 % (11.6-14.6)
[2022-05-30 11:38] LABS: CHLORIDE 106 mEq/L (98-107)
[2022-05-30 11:51] LABS: HDL CHOLESTEROL 72 mg/dL (40-59); LDL CHOLESTEROL 130 mg/dL (5-100)
[2022-06-01 08:07] LABS: CANCER ANTIGEN 125 6.5 U/mL (0.0-38.1)
== END | disposition home or self-care (01) ==
LOC: LAB 10:49
PROVIDERS: ATTEND Internal Medicine Geriatric Medicine
DX: I10 Essential (primary) hypertension (principal); N83.209 Unspecified ovarian cyst, unspecified side
CPT/HCPCS: 36415; 80053; 80061; 82378; 83036; 83735; 84436; 84443; 85025; 86304

== ENCOUNTER → 2022-06-07 | Outpatient (CLI) | payer BC, MEDICAID | END | disposition home or self-care (01) | LOC: US 13:03 | PROVIDERS: ATTEND Internal Medicine Geriatric Medicine | DX: N83.201 Unspecified ovarian cyst, right side (principal); R10.2 Pelvic and perineal pain; Z90.710 Acquired absence of both cervix and uterus; Z90.721 Acquired absence of ovaries, unilateral | CPT/HCPCS: 76830; 76856 ==

== ENCOUNTER → 2022-07-27 | Outpatient (CLI) | payer BC | END | disposition home or self-care (01) | LOC: MAMMO 08:55 | PROVIDERS: ATTEND Internal Medicine Geriatric Medicine | DX: N60.01 Solitary cyst of right breast (principal); N60.02 Solitary cyst of left breast; E28.2 Polycystic ovarian syndrome; Z90.710 Acquired absence of both cervix and uterus; Z90.721 Acquired absence of ovaries, unilateral | CPT/HCPCS: 72195; 76642; 77066 ==

== ENCOUNTER 2022-08-11 19:46 | Emergency (ER) | payer BC ==
[~2022-08-11] VITALS: Ht 134.6 cm; Wt 64.3 kg
[2022-08-11 20:16] LABS: CLARITY URINE CLEAR (CLEAR); COLOR URINE YELLOW (YELLOW); KETONES URINE NEGATIVE (NEGATIVE); LEUKOCYTE ESTERASE URINE NEGATIVE (NEGATIVE); NITRITE URINE NEGATIVE (NEGATIVE); OCCULT BLOOD URINE NEGATIVE (NEGATIVE); PROTEIN URINE NEGATIVE (NEGATIVE); SPECIFIC GRAVITY URINE 1.018 (1.005-1.030)
[2022-08-11 20:49] LABS: BASOPHILS % 0.5 % (0.0-2.0); EOSINOPHILS % 4.1 % (0.0-5.0); HEMATOCRIT. 40.9 % (36.0-48.0); HEMOGLOBIN. 14.3 g/dL (12.0-16.0); LYMPHOCYTES % 42.6 % (20.0-50.0); MEAN CORPUSCULAR HEMOGLOBIN 30.6 pg (28.0-32.0); MEAN CORPUSCULAR VOLUME 87.8 fL (81.0-99.0); MEAN PLATELET VOLUME 9.2 fl (7.4-10.4); MONOCYTES % 5.5 % (2.0-8.0); NEUTROPHILS % 47.3 % (40.0-76.0); PLATELET 316 x1000/uL (130-400); RED BLOOD CELL COUNT 4.66 mill/uL (4.2-5.4)
[2022-08-11 20:57] LABS: PROTHROMBIN TIME 10.3 sec (9.6-11.0)
[2022-08-11 20:59] LABS: CHLORIDE 109 mEq/L (98-107)
[2022-08-11 21:06] LABS: HCG SCREEN NEGATIVE
[2022-08-11] MEDS ORDERED: TOPUD PO (23:12)
[2022-08-12 01:27] VITALS: BP 119/72
== END 2022-08-12 01:27 | disposition home or self-care (01) ==
LOC: ER 19:46
DX: R10.13 Epigastric pain (principal); R11.2 Nausea with vomiting, unspecified; I10 Essential (primary) hypertension; Z98.890 Other specified postprocedural states; Z90.710 Acquired absence of both cervix and uterus
CPT/HCPCS: 36415; 76705; 80053; 81003; 84703; 85025; 99284

== ENCOUNTER → 2022-08-13 | Outpatient (CLI) | payer BC ==
[~2022-08-13] MED LIST changes: +TOPUD PO
== END | disposition home or self-care (01) ==
LOC: CARD 08:56
PROVIDERS: ATTEND Specialist
DX: I07.1 Rheumatic tricuspid insufficiency (principal); R00.2 Palpitations; I10 Essential (primary) hypertension
CPT/HCPCS: 93225; 93306

== ENCOUNTER → 2022-09-04 | Outpatient (CLI) | payer BC ==
[2022-09-04 09:06] LABS: CLARITY URINE CLEAR (CLEAR); COLOR URINE YELLOW (YELLOW); KETONES URINE NEGATIVE (NEGATIVE); LEUKOCYTE ESTERASE URINE NEGATIVE (NEGATIVE); NITRITE URINE NEGATIVE (NEGATIVE); OCCULT BLOOD URINE NEGATIVE (NEGATIVE); PH URINE 5.5 (4.5-8.0); PROTEIN URINE NEGATIVE (NEGATIVE); SPECIFIC GRAVITY URINE 1.019 (1.005-1.030); UROBILINOGEN URINE 0.2 E.U./dL (0.2-1.0)
[2022-09-04 09:13] LABS: CHLORIDE 110 mEq/L (98-107)
[2022-09-04 09:29] LABS: T4 FREE 0.95 ng/dL (0.76-1.46)
== END | disposition home or self-care (01) ==
LOC: LAB 08:37
PROVIDERS: ATTEND Internal Medicine Geriatric Medicine
DX: K52.9 Noninfective gastroenteritis and colitis, unspecified (principal); E03.9 Hypothyroidism, unspecified
CPT/HCPCS: 36415; 80048; 81003; 84436; 84439; 84443; 84479; 87015; 87045; 87177; 87209; 87427; 87449; 87493

== ENCOUNTER 2022-09-06 18:10 | Emergency (ER) | payer BC ==
[~2022-09-06] VITALS: Ht 160 cm; Wt 75.0 kg
[2022-09-06 19:10] LABS: BASOPHILS % 0.5 % (0.0-2.0); HEMATOCRIT. 38.4 % (36.0-48.0); HEMOGLOBIN. 13.2 g/dL (12.0-16.0); LYMPHOCYTES % 30.7 % (20.0-50.0); MEAN CORPUSCULAR HEMOGLOBIN 30.6 pg (28.0-32.0); MEAN CORPUSCULAR VOLUME 88.9 fL (81.0-99.0); MEAN PLATELET VOLUME 9.1 fl (7.4-10.4); MONOCYTES % 5.7 % (2.0-8.0); NEUTROPHILS % 60.1 % (40.0-76.0); PLATELET 276 x1000/uL (130-400); RED BLOOD CELL COUNT 4.32 mill/uL (4.2-5.4); RED CELL DISTRIBUTION WIDTH 13.3 % (11.6-14.6)
[2022-09-06 19:19] LABS: CHLORIDE 110 mEq/L (98-107)
[2022-09-06] MEDS ORDERED: IBUPROFEN 400MG TABLET PO ONE (19:30)
[2022-09-06] MEDS ORDERED: ACETAMINOPHEN 325MG TABLET PO ONE (19:30)
[2022-09-06 20:47] LABS: HCG SCREEN NEGATIVE
[2022-09-06] MEDS ORDERED: IBUP-2028 MT ×2 (21:29)
[2022-09-06] MEDS ORDERED: LIDO1ADH82 TP (21:31)
[2022-09-06] MEDS ORDERED: ACETAMINOPHEN 325MG TABLET PO NR (21:45)
[2022-09-06] MEDS ORDERED: IBUPROFEN 400MG TABLET PO NR (21:45)
[2022-09-06 22:14] VITALS: BP 120/67
== END 2022-09-06 22:15 | disposition home or self-care (01) ==
LOC: ER 18:24
DX: N64.4 Mastodynia (principal); I10 Essential (primary) hypertension; Z98.890 Other specified postprocedural states; Z90.710 Acquired absence of both cervix and uterus; Z79.899 Other long term (current) drug therapy
CPT/HCPCS: 36415; 71046; 76641; 80053; 81025; 84484; 84703; 85025; 93005; 99285

== ENCOUNTER → 2022-11-13 | Outpatient (CLI) | payer BC ==
[~2022-11-13] MED LIST changes: +LIDO1ADH82 TP
[2022-11-13 15:19] LABS: BASOPHILS % 0.3 % (0.0-2.0); EOSINOPHILS % 2.8 % (0.0-5.0); HEMATOCRIT. 38.1 % (36.0-48.0); HEMOGLOBIN. 13.2 g/dL (12.0-16.0); LYMPHOCYTES % 39.9 % (20.0-50.0); MEAN CORPUSCULAR HEMOGLOBIN 30.9 pg (28.0-32.0); MEAN CORPUSCULAR HGB CONC 34.5 g/dL (31.0-37.0); MEAN CORPUSCULAR VOLUME 89.6 fL (81.0-99.0); MEAN PLATELET VOLUME 9.3 fl (7.4-10.4); MONOCYTES % 5.4 % (2.0-8.0); NEUTROPHILS % 51.6 % (40.0-76.0); PLATELET 302 x1000/uL (130-400); RED BLOOD CELL COUNT 4.25 mill/uL (4.2-5.4); RED CELL DISTRIBUTION WIDTH 13.6 % (11.6-14.6); WHITE BLOOD COUNT 6.4 x1000/uL (4.5-11.0)
[2022-11-13 15:29] LABS: CHLORIDE 109 mEq/L (98-107); INDEX HEMOLYSI 1 (1-3); INDEX ICTERIC 1 (1-4); INDEX LIPEMIC 1 (1-3); POTASSIUM 3.8 mEq/L (3.5-5.1); SODIUM 139 mEq/L (136-145)
[2022-11-13 15:40] LABS: ALANINE AMINOTRANSFERASE 38 IU/L (13-61); ASPARTATE AMINOTRANSFERASE 25 IU/L (15-37); BILIRUBIN TOTAL 0.7 mg/dL (0.1-1.0); CALCIUM 8.5 mg/dL (8.5-10.1); CARBON DIOXIDE 25 mEq/L (21-32); CREATININE 0.7 mg/dL (0.6-1.3); GLUCOSE 86 mg/dL (70-105); PROTEIN TOTAL 7.5 g/dL (6.0-8.3); UREA NITROGEN BLOOD 15 mg/dL (7-21)
== END | disposition home or self-care (01) ==
LOC: LAB 13:56
PROVIDERS: ATTEND Internal Medicine Gastroenterology
DX: R10.84 Generalized abdominal pain (principal)
CPT/HCPCS: 36415; 80053; 85025; 86140

== ENCOUNTER → 2022-12-05 | Outpatient (CLI) | payer BC ==
[~2022-12-05] MED LIST changes: +IOHEXOL-300 100 ML BOTTLE ONE
== END | disposition home or self-care (01) ==
LOC: CT 09:13
PROVIDERS: ATTEND Internal Medicine Gastroenterology
DX: R16.0 Hepatomegaly, not elsewhere classified (principal); R10.9 Unspecified abdominal pain; Z90.10 Acquired absence of unspecified breast and nipple
CPT/HCPCS: 74177; Q9967; Z7610

== ENCOUNTER → 2023-01-08 | Outpatient (CLI) | payer BC ==
[~2023-01-08] MED LIST changes: -IOHEXOL-300 100 ML BOTTLE ONE
[2023-01-08 11:19] LABS: BASOPHILS % 0.4 % (0.0-2.0); HEMOGLOBIN. 14.6 g/dL (12.0-16.0); LYMPHOCYTES % 37.7 % (20.0-50.0); MEAN CORPUSCULAR HEMOGLOBIN 30.5 pg (28.0-32.0); MEAN CORPUSCULAR HGB CONC 34.7 g/dL (31.0-37.0); MEAN CORPUSCULAR VOLUME 87.8 fL (81.0-99.0); MEAN PLATELET VOLUME 8.7 fl (7.4-10.4); MONOCYTES % 5.8 % (2.0-8.0); NEUTROPHILS % 52.1 % (40.0-76.0); PLATELET 334 x1000/uL (130-400); RED BLOOD CELL COUNT 4.78 mill/uL (4.2-5.4); RED CELL DISTRIBUTION WIDTH 13.2 % (11.6-14.6)
[2023-01-08 11:45] LABS: CHLORIDE 107 mEq/L (98-107); INDEX HEMOLYSI 1 (1-3); INDEX ICTERIC 1 (1-4); INDEX LIPEMIC 1 (1-3); POTASSIUM 3.9 mEq/L (3.5-5.1); SODIUM 138 mEq/L (136-145)
[2023-01-08 12:02] LABS: ALANINE AMINOTRANSFERASE 43 IU/L (13-61); ASPARTATE AMINOTRANSFERASE 27 IU/L (15-37); BILIRUBIN TOTAL 0.6 mg/dL (0.1-1.0); CALCIUM 8.5 mg/dL (8.5-10.1); CARBON DIOXIDE 27 mEq/L (21-32); CHOLESTEROL 216 mg/dL (<200); CREATININE 0.7 mg/dL (0.6-1.3); GLUCOSE 90 mg/dL (70-105); HDL CHOLESTEROL 81 mg/dL (40-59); LDL CHOLESTEROL 122 mg/dL (5-100); PROTEIN TOTAL 8.1 g/dL (6.0-8.3); T4 FREE 0.99 ng/dL (0.76-1.46); TRIGLYCERIDE 77 mg/dL (0-150); UREA NITROGEN BLOOD 17 mg/dL (7-21)
== END | disposition home or self-care (01) ==
LOC: LAB 10:15
PROVIDERS: ATTEND Specialist
DX: E11.9 Type 2 diabetes mellitus without complications (principal); E78.2 Mixed hyperlipidemia; E55.9 Vitamin D deficiency, unspecified; D64.9 Anemia, unspecified
CPT/HCPCS: 36415; 80053; 80061; 82306; 83036; 84439; 84443; 84481; 85025

== ENCOUNTER → 2023-03-26 | Outpatient (CLI) | payer BC ==
[2023-03-26 09:55] LABS: BASOPHILS % 0.2 % (0.0-2.0); EOSINOPHILS % 0.1 % (0.0-5.0); HEMATOCRIT. 41.8 % (36.0-48.0); HEMOGLOBIN. 14.1 g/dL (12.0-16.0); LYMPHOCYTES % 24.2 % (20.0-50.0); MEAN CORPUSCULAR HEMOGLOBIN 30.3 pg (28.0-32.0); MEAN CORPUSCULAR HGB CONC 33.7 g/dL (31.0-37.0); MEAN PLATELET VOLUME 8.9 fl (7.4-10.4); MONOCYTES % 5.5 % (2.0-8.0); PLATELET 320 x1000/uL (130-400); RED BLOOD CELL COUNT 4.64 mill/uL (4.2-5.4); RED CELL DISTRIBUTION WIDTH 13.6 % (11.6-14.6); WHITE BLOOD COUNT 8.6 x1000/uL (4.5-11.0)
[2023-03-26 11:02] LABS: ALANINE AMINOTRANSFERASE 44 IU/L (10-49); ALBUMIN 4.1 g/dL (3.2-4.8); ASPARTATE AMINOTRANSFERASE 18 IU/L (<34); BILIRUBIN TOTAL 0.7 mg/dL (0.1-1.0); CARBON DIOXIDE 25 mEq/L (21-32); CHLORIDE 108 mEq/L (98-107); CHOLESTEROL 185 mg/dL (<200); CREATININE 0.6 mg/dL (0.6-1.0); GLUCOSE 94 mg/dL (70-105); HDL CHOLESTEROL 70 mg/dL (>65); LDL CHOLESTEROL 142 mg/dL (5-100); POTASSIUM 4.1 mEq/L (3.5-5.1); PROTEIN TOTAL 6.6 g/dL (6.0-8.3); SODIUM 140 mEq/L (136-145); T4 FREE 1.15 ng/dL (0.89-1.76); THYROID STIMULATING HORMONE 3.94 uIU/mL (0.55-4.78); TRIGLYCERIDE 142 mg/dL (0-150); UREA NITROGEN BLOOD 17 mg/dL (9-23)
== END | disposition home or self-care (01) ==
LOC: MAMMO 08:16
PROVIDERS: ATTEND Internal Medicine Geriatric Medicine
DX: N60.02 Solitary cyst of left breast (principal); N60.01 Solitary cyst of right breast; N63.25 Unspecified lump in the left breast, overlapping quadrants; K75.81 Nonalcoholic steatohepatitis (NASH); E03.8 Other specified hypothyroidism
CPT/HCPCS: 36415; 76642; 77066; 80053; 80061; 83001; 84439; 84443; 85025

== ENCOUNTER → 2023-03-26 | Outpatient (CLI) | payer BC | END | disposition home or self-care (01) | LOC: LAB 08:08 | PROVIDERS: ATTEND Specialist | DX: I11.9 Hypertensive heart disease without heart failure (principal); R94.31 Abnormal electrocardiogram [ECG] [EKG]; E55.9 Vitamin D deficiency, unspecified; E78.2 Mixed hyperlipidemia; D64.9 Anemia, unspecified | CPT/HCPCS: 82306; 83036 ==

== ENCOUNTER → 2023-06-14 | Outpatient (CLI) | payer BC ==
[2023-06-14 10:34] LABS: BASOPHILS % 0.4 % (0.0-2.0); EOSINOPHILS % 3.3 % (0.0-5.0); HEMATOCRIT. 40.1 % (36.0-48.0); LYMPHOCYTES % 34.4 % (20.0-50.0); MEAN CORPUSCULAR HGB CONC 34.8 g/dL (31.0-37.0); MEAN PLATELET VOLUME 8.9 fl (7.4-10.4); MONOCYTES % 6.1 % (2.0-8.0); NEUTROPHILS % 55.8 % (40.0-76.0); PLATELET 265 x1000/uL (130-400); RED BLOOD CELL COUNT 4.51 mill/uL (4.2-5.4); RED CELL DISTRIBUTION WIDTH 13.1 % (11.6-14.6)
[2023-06-14 11:08] LABS: ALANINE AMINOTRANSFERASE 31 IU/L (10-49); ALBUMIN 4.4 g/dL (3.2-4.8); ASPARTATE AMINOTRANSFERASE 26 IU/L (<34); BILIRUBIN TOTAL 0.7 mg/dL (0.1-1.0); CALCIUM 8.3 mg/dL (8.7-10.4); CARBON DIOXIDE 26 mEq/L (21-32); CHLORIDE 106 mEq/L (98-107); CHOLESTEROL 197 mg/dL (<200); CREATININE 0.5 mg/dL (0.6-1.0); GLUCOSE 95 mg/dL (70-105); HDL CHOLESTEROL 78 mg/dL (>65); LDL CHOLESTEROL 115 mg/dL (5-100); POTASSIUM 3.9 mEq/L (3.5-5.1); PROTEIN TOTAL 6.8 g/dL (6.0-8.3); SODIUM 140 mEq/L (136-145); T4 FREE 0.95 ng/dL (0.89-1.76); TRIGLYCERIDE 78 mg/dL (0-150); UREA NITROGEN BLOOD 16 mg/dL (9-23)
== END | disposition home or self-care (01) ==
LOC: LAB 09:00
PROVIDERS: ATTEND Specialist
DX: E11.9 Type 2 diabetes mellitus without complications (principal); E78.2 Mixed hyperlipidemia; E55.9 Vitamin D deficiency, unspecified; D64.9 Anemia, unspecified
CPT/HCPCS: 36415; 80053; 80061; 82306; 83036; 84439; 84480; 85025

== ENCOUNTER → 2023-06-14 | Outpatient (CLI) | payer BC | END | disposition home or self-care (01) | LOC: US 08:49 | PROVIDERS: ATTEND Internal Medicine Geriatric Medicine | DX: R10.9 Unspecified abdominal pain (principal); Z90.49 Acquired absence of other specified parts of digestive tract | CPT/HCPCS: 76700 ==

== ENCOUNTER → 2023-08-22 | Outpatient (CLI) | payer BC | END | disposition home or self-care (01) | LOC: RAD 10:07 | PROVIDERS: ATTEND Internal Medicine | DX: M25.571 Pain in right ankle and joints of right foot (principal); M25.572 Pain in left ankle and joints of left foot | CPT/HCPCS: 73610 ==

== ENCOUNTER → 2023-08-22 | Outpatient (CLI) | payer BC | END | disposition home or self-care (01) | LOC: MAMMO 09:52 | PROVIDERS: ATTEND Internal Medicine Geriatric Medicine | DX: N60.02 Solitary cyst of left breast (principal); N60.01 Solitary cyst of right breast; R22.2 Localized swelling, mass and lump, trunk; N64.4 Mastodynia | CPT/HCPCS: 76642; 77062; 77066; 93970; G0279 ==

== ENCOUNTER → 2023-08-22 | Outpatient (CLI) | payer BC | END | disposition home or self-care (01) | LOC: US 10:01 | PROVIDERS: ATTEND Obstetrics & Gynecology Obstetrics | DX: N83.291 Other ovarian cyst, right side (principal); M54.50 Low back pain, unspecified; M54.16 Radiculopathy, lumbar region | CPT/HCPCS: 72158; 76830; 76856; A9577 ==

== ENCOUNTER → 2023-08-23 | Outpatient (CLI) | payer BC ==
[~2023-08-23] MED LIST changes: +GADOTERATE MEGLUMINE 5 MMOL/10 ML VIAL IV ONE
== END | disposition home or self-care (01) ==
LOC: CT 09:27
PROVIDERS: ATTEND Obstetrics & Gynecology Obstetrics
DX: S32.048A Other fracture of fourth lumbar vertebra, initial encounter for closed fracture (principal); D18.00 Hemangioma unspecified site; X58.XXXA Exposure to other specified factors, initial encounter; Y93.89 Activity, other specified; Y92.89 Other specified places as the place of occurrence of the external cause; Y99.8 Other external cause status
CPT/HCPCS: 72131; A9577

== ENCOUNTER → 2023-10-16 | Outpatient (CLI) | payer BC ==
[~2023-10-16] MED LIST changes: -GADOTERATE MEGLUMINE 5 MMOL/10 ML VIAL IV ONE
[2023-10-16 09:42] LABS: BASOPHILS % 0.7 % (0.0-2.0); HEMATOCRIT. 42.7 % (36.0-48.0); HEMOGLOBIN. 14.6 g/dL (12.0-16.0); MEAN CORPUSCULAR HGB CONC 34.3 g/dL (31.0-37.0); MEAN CORPUSCULAR VOLUME 87.5 fL (81.0-99.0); MEAN PLATELET VOLUME 8.4 fl (7.4-10.4); MONOCYTES % 4.9 % (2.0-8.0); NEUTROPHILS % 53.4 % (40.0-76.0); PLATELET 339 x1000/uL (130-400); RED BLOOD CELL COUNT 4.87 mill/uL (4.2-5.4); RED CELL DISTRIBUTION WIDTH 13.4 % (11.6-14.6); WHITE BLOOD COUNT 5.2 x1000/uL (4.5-11.0)
[2023-10-16 09:53] LABS: CARBON DIOXIDE 28 mEq/L (21-32); CHLORIDE 106 mEq/L (98-107); POTASSIUM 4.1 mEq/L (3.5-5.1); SODIUM 140 mEq/L (136-145)
[2023-10-16 09:54] LABS: CALCIUM 9.3 mg/dL (8.7-10.4)
[2023-10-16 09:58] LABS: CREATININE 0.8 mg/dL (0.6-1.0)
[2023-10-16 09:59] LABS: GLUCOSE 98 mg/dL (70-105); TRIGLYCERIDE 118 mg/dL (0-150); UREA NITROGEN BLOOD 12 mg/dL (9-23)
[2023-10-16 10:00] LABS: ALANINE AMINOTRANSFERASE 52 IU/L (10-49); ASPARTATE AMINOTRANSFERASE 40 IU/L (<34); LDL CHOLESTEROL 145 mg/dL (5-100)
[2023-10-16 10:01] LABS: ALBUMIN 4.5 g/dL (3.2-4.8); CHOLESTEROL 231 mg/dL (<200); HDL CHOLESTEROL 80 mg/dL (>65); PROTEIN TOTAL 7.2 g/dL (6.0-8.3)
[2023-10-16 10:03] LABS: THYROID STIMULATING HORMONE 4.29 uIU/mL (0.55-4.78)
[2023-10-16 10:05] LABS: VITAMIN B12 SERUM 784 pg/mL (211-911)
[2023-10-17 08:09] LABS: CANCER ANTIGEN 125 5.6 U/mL (0.0-38.1); FOLICLE STIMULATING HORMONE 48.9 mIU/mL (.)
== END | disposition home or self-care (01) ==
LOC: LAB 09:02
PROVIDERS: ATTEND Internal Medicine Geriatric Medicine
DX: N83.201 Unspecified ovarian cyst, right side (principal)
CPT/HCPCS: 36415; 80053; 80061; 82607; 83001; 83036; 84443; 85025; 86304

== ENCOUNTER → 2023-10-16 | Outpatient (CLI) | payer BC | END | disposition home or self-care (01) | LOC: CT 08:50 | PROVIDERS: ATTEND Neurological Surgery | DX: M51.27 Other intervertebral disc displacement, lumbosacral region (principal) | CPT/HCPCS: 72131 ==

== ENCOUNTER → 2023-10-29 | Outpatient (CLI) | payer BC ==
[2023-10-29 09:57] LABS: BASOPHILS % 0.2 % (0.0-2.0); EOSINOPHILS % 3.7 % (0.0-5.0); HEMATOCRIT. 40.5 % (36.0-48.0); LYMPHOCYTES % 24.3 % (20.0-50.0); MEAN CORPUSCULAR HEMOGLOBIN 30.2 pg (28.0-32.0); MEAN CORPUSCULAR HGB CONC 34.5 g/dL (31.0-37.0); MEAN CORPUSCULAR VOLUME 87.5 fL (81.0-99.0); MEAN PLATELET VOLUME 8.7 fl (7.4-10.4); MONOCYTES % 5.4 % (2.0-8.0); NEUTROPHILS % 66.4 % (40.0-76.0); PLATELET 289 x1000/uL (130-400); RED BLOOD CELL COUNT 4.63 mill/uL (4.2-5.4); RED CELL DISTRIBUTION WIDTH 13.4 % (11.6-14.6); WHITE BLOOD COUNT 8.1 x1000/uL (4.5-11.0)
[2023-10-29 10:07] LABS: CHLORIDE 106 mEq/L (98-107); SODIUM 138 mEq/L (136-145)
[2023-10-29 10:08] LABS: CALCIUM 9.5 mg/dL (8.7-10.4); CARBON DIOXIDE 27 mEq/L (21-32)
[2023-10-29 10:13] LABS: CREATININE 0.7 mg/dL (0.6-1.0); GLUCOSE 91 mg/dL (70-105); UREA NITROGEN BLOOD 15 mg/dL (9-23)
[2023-10-29 10:15] LABS: ALANINE AMINOTRANSFERASE 51 IU/L (10-49); ALBUMIN 4.8 g/dL (3.2-4.8); ASPARTATE AMINOTRANSFERASE 30 IU/L (<34); BILIRUBIN TOTAL 0.8 mg/dL (0.1-1.0); PROTEIN TOTAL 7.4 g/dL (6.0-8.3)
[2023-10-29 10:17] LABS: T4 FREE 1.21 ng/dL (0.89-1.76); THYROID STIMULATING HORMONE 3.15 uIU/mL (0.55-4.78)
[2023-10-30 09:07] LABS: *T3 UPTAKE 27 % (24-39); CA 19-9 6 U/mL (0-35); CANCER ANTIGEN 125 6.4 U/mL (0.0-38.1)
[2023-11-01 04:09] LABS: THYROXINE BINDING GLOBULIN 45 ug/mL (13-39)
== END | disposition home or self-care (01) ==
LOC: LAB 09:29
PROVIDERS: ATTEND Internal Medicine Geriatric Medicine
DX: D43.4 Neoplasm of uncertain behavior of spinal cord (principal); M48.061 Spinal stenosis, lumbar region without neurogenic claudication; E03.8 Other specified hypothyroidism
CPT/HCPCS: 36415; 80053; 82378; 84439; 84442; 84443; 84479; 85025; 86301; 86304

== ENCOUNTER → 2023-12-25 | Outpatient (CLI) | payer BC ==
[2023-12-25 10:34] LABS: CREATININE 0.7 mg/dL (0.6-1.0); UREA NITROGEN BLOOD 14 mg/dL (9-23)
== END | disposition home or self-care (01) ==
LOC: LAB 10:04
PROVIDERS: ATTEND Neurological Surgery
DX: M54.50 Low back pain, unspecified (principal)
CPT/HCPCS: 36415; 82565; 84520

== ENCOUNTER → 2023-12-31 | Outpatient (CLI) | payer BC | END | disposition home or self-care (01) | LOC: MRI 14:27 | PROVIDERS: ATTEND Neurological Surgery | DX: M51.37 Other intervertebral disc degeneration, lumbosacral region (principal); M48.07 Spinal stenosis, lumbosacral region; M47.817 Spondylosis without myelopathy or radiculopathy, lumbosacral region | CPT/HCPCS: 72148 ==

== ENCOUNTER → 2024-05-01 | Outpatient (CLI) | payer BC ==
[2024-05-01 12:26] LABS: BASOPHILS % 0.5 % (0.0-2.0); EOSINOPHILS % 4.3 % (0.0-5.0); HEMATOCRIT. 40.1 % (36.0-48.0); HEMOGLOBIN. 13.8 g/dL (12.0-16.0); LYMPHOCYTES % 33.2 % (20.0-50.0); MEAN CORPUSCULAR HGB CONC 34.5 g/dL (31.0-37.0); MEAN CORPUSCULAR VOLUME 89.8 fL (81.0-99.0); MEAN PLATELET VOLUME 8.8 fl (7.4-10.4); MONOCYTES % 5.2 % (2.0-8.0); NEUTROPHILS % 56.8 % (40.0-76.0); PLATELET 277 x1000/uL (130-400); RED BLOOD CELL COUNT 4.47 mill/uL (4.2-5.4); RED CELL DISTRIBUTION WIDTH 13.2 % (11.6-14.6); WHITE BLOOD COUNT 5.6 x1000/uL (4.5-11.0)
[2024-05-01 12:28] LABS: CLARITY URINE CLOUDY (CLEAR); COLOR URINE YELLOW (YELLOW); GLUCOSE URINE NEGATIVE (NEGATIVE); KETONES URINE NEGATIVE (NEGATIVE); LEUKOCYTE ESTERASE URINE NEGATIVE (NEGATIVE); NITRITE URINE NEGATIVE (NEGATIVE); OCCULT BLOOD URINE NEGATIVE (NEGATIVE); PH URINE 5.5 (4.5-8.0); PROTEIN URINE NEGATIVE (NEGATIVE); SPECIFIC GRAVITY URINE 1.012 (1.005-1.030); UROBILINOGEN URINE 0.2 E.U./dL (0.2-1.0)
[2024-05-01 12:37] LABS: CHLORIDE 111 mEq/L (98-107); POTASSIUM 3.6 mEq/L (3.5-5.1); SODIUM 142 mEq/L (136-145)
[2024-05-01 12:38] LABS: CALCIUM 9.2 mg/dL (8.7-10.4); CARBON DIOXIDE 26 mEq/L (21-32)
[2024-05-01 12:43] LABS: CREATININE 0.7 mg/dL (0.6-1.0); GLUCOSE 89 mg/dL (70-105); IRON 106 ug/dL (50-170); URIC ACID 4.3 mg/dL (3.1-7.8)
[2024-05-01 12:44] LABS: LDL CHOLESTEROL 138 mg/dL (5-100); TRIGLYCERIDE 134 mg/dL (0-150); UREA NITROGEN BLOOD 11 mg/dL (9-23)
[2024-05-01 12:45] LABS: ALANINE AMINOTRANSFERASE 70 IU/L (10-49); ALBUMIN 4.5 g/dL (3.2-4.8); ASPARTATE AMINOTRANSFERASE 46 IU/L (<34); BILIRUBIN TOTAL 0.9 mg/dL (0.1-1.0); CHOLESTEROL 216 mg/dL (<200); HDL CHOLESTEROL 62 mg/dL (>65)
[2024-05-01 12:46] LABS: PROTEIN TOTAL 7.3 g/dL (6.0-8.3); TOTAL IRON BINDING CAPACITY 307 ug/dl (250-425)
[2024-05-01 12:47] LABS: FERRITIN 81 ng/mL (10-291); VITAMIN B12 SERUM 506 pg/mL (211-911)
[2024-05-01 12:49] LABS: T4 FREE 1.17 ng/dL (0.89-1.76); THYROID STIMULATING HORMONE 3.24 uIU/mL (0.55-4.78)
[2024-05-01 12:52] LABS: BACTERIA URINE 1+; RBC URINE 0-2 /hpf (0-2); SQUAMOUS EPITHELIAL CELL URINE 2+ /lpf (RARE/1+); WBC URINE 0-2 /hpf (0-2); YEAST URINE NONE SEEN
[2024-05-01 13:36] LABS: FOLIC ACID (FOLATE) SERUM > 20.00 ng/mL (>5.38)
== END | disposition home or self-care (01) ==
LOC: US 11:27
PROVIDERS: ATTEND Internal Medicine Geriatric Medicine
DX: N83.291 Other ovarian cyst, right side (principal); R10.2 Pelvic and perineal pain; Z90.710 Acquired absence of both cervix and uterus; Z90.721 Acquired absence of ovaries, unilateral
CPT/HCPCS: 36415; 76830; 76856; 80053; 80061; 80074; 81003; 82306; 82607; 82670; 82728; 82746; 83001; 83540; 83550; 84439; 84443; 84479; 84550; 85025; 86592

== ENCOUNTER → 2024-06-09 | Outpatient (CLI) | payer BC | END | disposition home or self-care (01) | LOC: LAB 07:52 | PROVIDERS: ATTEND Internal Medicine Geriatric Medicine | DX: R20.2 Paresthesia of skin (principal) | CPT/HCPCS: 83036 ==

== ENCOUNTER → 2024-08-10 | Outpatient (CLI) | payer BC ==
[2024-08-10 10:25] LABS: BASOPHILS % 0.4 % (0.0-2.0); EOSINOPHILS % 3.5 % (0.0-5.0); HEMOGLOBIN. 13.7 g/dL (12.0-16.0); MEAN CORPUSCULAR HEMOGLOBIN 29.6 pg (28.0-32.0); MEAN CORPUSCULAR HGB CONC 34.1 g/dL (31.0-37.0); MEAN CORPUSCULAR VOLUME 86.8 fL (81.0-99.0); MEAN PLATELET VOLUME 9.1 fl (7.4-10.4); NEUTROPHILS % 53.1 % (40.0-76.0); PLATELET 279 x1000/uL (130-400); RED BLOOD CELL COUNT 4.62 mill/uL (4.2-5.4); RED CELL DISTRIBUTION WIDTH 13.5 % (11.6-14.6); WHITE BLOOD COUNT 5.9 x1000/uL (4.5-11.0)
[2024-08-10 10:35] LABS: CHLORIDE 108 mEq/L (98-107); POTASSIUM 4.4 mEq/L (3.5-5.1); SODIUM 141 mEq/L (136-145)
[2024-08-10 10:36] LABS: CALCIUM 9.1 mg/dL (8.7-10.4); CARBON DIOXIDE 27 mEq/L (21-32)
[2024-08-10 10:37] LABS: CLARITY URINE CLEAR (CLEAR); COLOR URINE YELLOW (YELLOW); GLUCOSE URINE NEGATIVE (NEGATIVE); KETONES URINE NEGATIVE (NEGATIVE); LEUKOCYTE ESTERASE URINE NEGATIVE (NEGATIVE); NITRITE URINE NEGATIVE (NEGATIVE); OCCULT BLOOD URINE NEGATIVE (NEGATIVE); PROTEIN URINE NEGATIVE (NEGATIVE); SPECIFIC GRAVITY URINE 1.028 (1.005-1.030); UROBILINOGEN URINE 0.2 E.U./dL (0.2-1.0)
[2024-08-10 10:40] LABS: URIC ACID 3.9 mg/dL (3.1-7.8)
[2024-08-10 10:41] LABS: CREATININE 0.7 mg/dL (0.6-1.0); GLUCOSE 98 mg/dL (70-105); TRIGLYCERIDE 95 mg/dL (0-150); UREA NITROGEN BLOOD 20 mg/dL (9-23)
[2024-08-10 10:42] LABS: ALANINE AMINOTRANSFERASE 65 IU/L (10-49); LDL CHOLESTEROL 117 mg/dL (5-100)
[2024-08-10 10:43] LABS: ALBUMIN 4.3 g/dL (3.2-4.8); ASPARTATE AMINOTRANSFERASE 34 IU/L (<34); BILIRUBIN TOTAL 0.7 mg/dL (0.1-1.0); CHOLESTEROL 194 mg/dL (<200); HDL CHOLESTEROL 61 mg/dL (>65); PROTEIN TOTAL 7.3 g/dL (6.0-8.3)
[2024-08-10 10:45] LABS: T4 FREE 1.18 ng/dL (0.89-1.76); THYROID STIMULATING HORMONE 1.91 uIU/mL (0.55-4.78)
[2024-08-10 12:18] LABS: FOLIC ACID (FOLATE) SERUM 14.01 ng/mL (>5.38)
== END | disposition home or self-care (01) ==
LOC: LAB 09:55
PROVIDERS: ATTEND Internal Medicine Geriatric Medicine
DX: I10 Essential (primary) hypertension (principal); E03.9 Hypothyroidism, unspecified; R10.30 Lower abdominal pain, unspecified
CPT/HCPCS: 36415; 80053; 80061; 81003; 82306; 82746; 83036; 84439; 84443; 84550; 85025

== ENCOUNTER → 2024-09-01 | Outpatient (CLI) | payer BC | END | disposition home or self-care (01) | LOC: MAMMO 10:09 | PROVIDERS: ATTEND Internal Medicine Geriatric Medicine | DX: Z12.31 Encounter for screening mammogram for malignant neoplasm of breast (principal); N83.291 Other ovarian cyst, right side; R92.323 Mammographic fibroglandular density, bilateral breasts; R92.1 Mammographic calcification found on diagnostic imaging of breast; R10.31 Right lower quadrant pain; Z87.898 Personal history of other specified conditions; Z90.710 Acquired absence of both cervix and uterus; Z90.721 Acquired absence of ovaries, unilateral | CPT/HCPCS: 76830; 76856; 77063; 77067 ==

== ENCOUNTER → 2024-10-07 | Outpatient (CLI) | payer BC | END | disposition home or self-care (01) | LOC: MRI 14:35 | PROVIDERS: ATTEND Neurological Surgery | DX: S31.010A Laceration without foreign body of lower back and pelvis without penetration into retroperitoneum, initial encounter (principal); M51.27 Other intervertebral disc displacement, lumbosacral region; M51.370 Other intervertebral disc degeneration, lumbosacral region with discogenic back pain only; M47.817 Spondylosis without myelopathy or radiculopathy, lumbosacral region; M48.07 Spinal stenosis, lumbosacral region; X58.XXXA Exposure to other specified factors, initial encounter; Y93.89 Activity, other specified; Y92.89 Other specified places as the place of occurrence of the external cause; Y99.8 Other external cause status | CPT/HCPCS: 72158; A9577 ==

== ENCOUNTER → 2024-10-07 | Outpatient (CLI) | payer BC ==
[~2024-10-07] MED LIST changes: +GADOTERATE MEGLUMINE 5 MMOL/10 ML VIAL IV ONE
== END | disposition home or self-care (01) ==
LOC: MRI 14:42
PROVIDERS: ATTEND Obstetrics & Gynecology
DX: N83.209 Unspecified ovarian cyst, unspecified side (principal); R10.2 Pelvic and perineal pain; Z90.710 Acquired absence of both cervix and uterus; Z90.721 Acquired absence of ovaries, unilateral
CPT/HCPCS: 72197; A9577

== ENCOUNTER → 2024-11-05 | Outpatient (CLI) | payer BC ==
[~2024-11-05] MED LIST changes: -GADOTERATE MEGLUMINE 5 MMOL/10 ML VIAL IV ONE
[2024-11-05 10:08] LABS: CLARITY URINE CLEAR (CLEAR); COLOR URINE YELLOW (YELLOW); GLUCOSE URINE NEGATIVE (NEGATIVE); KETONES URINE NEGATIVE (NEGATIVE); LEUKOCYTE ESTERASE URINE NEGATIVE (NEGATIVE); NITRITE URINE NEGATIVE (NEGATIVE); OCCULT BLOOD URINE NEGATIVE (NEGATIVE); PH URINE 6.5 (4.5-8.0); PROTEIN URINE NEGATIVE (NEGATIVE); SPECIFIC GRAVITY URINE 1.018 (1.005-1.030); UROBILINOGEN URINE 0.2 E.U./dL (0.2-1.0)
[2024-11-05 10:08] LABS: BASOPHILS % 0.5 % (0.0-2.0); EOSINOPHILS % 4.2 % (0.0-5.0); HEMATOCRIT. 41.2 % (36.0-48.0); HEMOGLOBIN. 13.8 g/dL (12.0-16.0); LYMPHOCYTES % 36.6 % (20.0-50.0); MEAN PLATELET VOLUME 8.7 fl (7.4-10.4); MONOCYTES % 5.7 % (2.0-8.0); NEUTROPHILS % 53.0 % (40.0-76.0); PLATELET 286 x1000/uL (130-400); RED BLOOD CELL COUNT 4.71 mill/uL (4.2-5.4); RED CELL DISTRIBUTION WIDTH 13.6 % (11.6-14.6)
[2024-11-05 10:26] LABS: CREATININE 0.8 mg/dL (0.6-1.0)
[2024-11-05 10:27] LABS: LDL CHOLESTEROL 121 mg/dL (5-100); TRIGLYCERIDE 137 mg/dL (0-150); UREA NITROGEN BLOOD 16 mg/dL (9-23)
[2024-11-05 10:28] LABS: ASPARTATE AMINOTRANSFERASE 54 IU/L (<34)
[2024-11-05 10:29] LABS: BILIRUBIN TOTAL 0.6 mg/dL (0.1-1.0); PROTEIN TOTAL 7.0 g/dL (6.0-8.3)
[2024-11-05 10:31] LABS: T4 FREE 1.27 ng/dL (0.89-1.76)
[2024-11-05 10:39] LABS: INR 0.9
[2024-11-06 05:09] LABS: *T3 UPTAKE 30 % (24-39); CANCER ANTIGEN 125 7.1 U/mL (0.0-38.1); ESTRADIOL 12.2 pg/mL (.); FOLICLE STIMULATING HORMONE 50.8 mIU/mL (.); LUTEINIZING HORMONE 34.7 mIU/mL (.)
== END | disposition home or self-care (01) ==
LOC: LAB 09:37
PROVIDERS: ATTEND Internal Medicine Geriatric Medicine
DX: Z01.818 Encounter for other preprocedural examination (principal); I10 Essential (primary) hypertension; N83.209 Unspecified ovarian cyst, unspecified side; E03.9 Hypothyroidism, unspecified
CPT/HCPCS: 36415; 71046; 80053; 80061; 81003; 82670; 83001; 83002; 83036; 84439; 84443; 84479; 85025; 86304

== ENCOUNTER → 2025-03-11 | Outpatient (CLI) | payer BC ==
[2025-03-11 11:04] LABS: BASOPHILS % 0.3 % (0.0-2.0); EOSINOPHILS % 3.6 % (0.0-5.0); HEMATOCRIT. 40.7 % (36.0-48.0); HEMOGLOBIN. 14.0 g/dL (12.0-16.0); LYMPHOCYTES % 37.0 % (20.0-50.0); MEAN PLATELET VOLUME 8.8 fl (7.4-10.4); MONOCYTES % 5.5 % (2.0-8.0); NEUTROPHILS % 53.6 % (40.0-76.0); PLATELET 270 x1000/uL (130-400); RED BLOOD CELL COUNT 4.71 mill/uL (4.2-5.4); RED CELL DISTRIBUTION WIDTH 13.5 % (11.6-14.6)
[2025-03-11 11:17] LABS: CREATININE 0.7 mg/dL (0.6-1.0); UREA NITROGEN BLOOD 11 mg/dL (9-23)
[2025-03-11 11:18] LABS: PROTEIN TOTAL 7.0 g/dL (6.0-8.3)
[2025-03-11 11:19] LABS: ASPARTATE AMINOTRANSFERASE 37 IU/L (<34); PHOSPHORUS 3.4 mg/dL (2.5-4.9)
[2025-03-11 11:20] LABS: BILIRUBIN TOTAL 0.7 mg/dL (0.1-1.0)
[2025-03-11 11:21] LABS: T4 FREE 1.20 ng/dL (0.89-1.76)
[2025-03-11 12:14] LABS: HEPATITIS B CORE AB IGM NEGATIVE (Negative)
[2025-03-11 12:26] LABS: VITAMIN B12 SERUM > 2000 pg/mL (211-911)
== END | disposition home or self-care (01) ==
LOC: LAB 10:19
PROVIDERS: ATTEND Internal Medicine Geriatric Medicine
DX: I10 Essential (primary) hypertension (principal); E03.9 Hypothyroidism, unspecified; G03.9 Meningitis, unspecified; Z79.899 Other long term (current) drug therapy
CPT/HCPCS: 36415; 80053; 80069; 82306; 82607; 83036; 83735; 84439; 84443; 84550; 85025; 86705